=== PATIENT | male | born 1955 | race Caucasian/White ===

== ENCOUNTER 2016-07-09 01:54 | Inpatient (IN) | payer MEDICAID, OTHER ==
[~2016-07-09] VITALS: Ht 177.8 cm; Wt 105.5 kg
[2016-07-09] MEDS ORDERED: ONDANSETRON HCL 4 MG/2 ML VIAL IV ONE (02:30)
[2016-07-09] MEDS ORDERED: MORPHINE SULFATE 4 MG/ML SYRG IV ONE (02:30)
[2016-07-09 03:08] LABS: Basophils # (auto) 0.1 uL; Basophils % (auto) 0.6 % (0.0-2.0); Eosinophils # (auto) 0.3 uL; Eosinophils % (auto) 2.3 % (0.0-7.0); Hematocrit 44.9 % (41.0-53.0); Hemoglobin 14.9 g/dL (13.5-17.5); Lymphocytes % (auto) 17.6 % (10.0-50.0); Mean Corpuscular Hemoglobin 30.3 pg (28.0-32.0); Mean Corpuscular Hgb Conc. 33.3 g/dL (32.0-36.0); Mean Corpuscular Volume 90.9 fL (80.0-100.0); Mean Platelet Volume 8.5 fL (7.4-10.4); Monocytes % (auto) 9.3 % (0.0-12.0); Neutrophils # (auto) 7.8 uL; Neutrophils % (auto) 70.2 % (37.0-80.0); Platelet Count (auto) 262 10^3/uL (140-450); Red Cell Distribution Width 13.9 % (11.6-16.0); White Blood Cell 11.2 10^3/uL (4.4-10.8)
[2016-07-09 03:29] LABS: Calcium 8.5 mg/dL (8.5-10.1); Magnesium 2.1 mg/dL (1.6-2.6)
[2016-07-09 03:33] LABS: BUN/Creatinine Ratio 19.3; Bilirubin, Total 0.3 mg/dL (0.2-1.0); Total Protein 7.6 g/dL (6.4-8.2)
[2016-07-09 04:29] LABS: Potassium 5.6 mmol/L (3.5-5.1)
[2016-07-09] MEDS ORDERED: InsuLIN REG 1unit/0.01ml Soln (100units/ml) IV ONE (04:30)
[2016-07-09] MEDS ORDERED: NITROGLYCERIN 0.2MG/HR TOPICAL PATCH TD ONE (05:45)
[2016-07-09] MEDS ORDERED: ASPirin 81 mg TAB PO ONE ×2 (05:45→12:00)
[2016-07-09] MEDS ORDERED: CARV3.1213 PO (08:35)
[2016-07-09] MEDS ORDERED: AMIT PO (08:35)
[2016-07-09] MEDS ORDERED: ALBUAER3 IN (08:35)
[2016-07-09] MEDS ORDERED: GABA-498 PO (08:37)
[2016-07-09] MEDS ORDERED: IPRAAER6 IN (08:37)
[2016-07-09] MEDS ORDERED: CHOL20007 PO (08:37)
[2016-07-09] MEDS ORDERED: GEMF600T3 PO (08:37)
[2016-07-09] MEDS ORDERED: TRAZ50TA2 PO (08:37)
[2016-07-09] MEDS ORDERED: INSLISPI SC (08:39)
[2016-07-09] MEDS ORDERED: LEVEMIR SC ×2 (08:39)
[2016-07-09] MEDS ORDERED: LISI10TA6 PO (08:40)
[2016-07-09] MEDS ORDERED: NAPR-604 PO (08:40)
[2016-07-09] MEDS ORDERED: METF-314 PO (08:40)
[2016-07-09 11:44] LABS: Urine RBC None Seen /hpf (0 - 3)
[2016-07-09] MEDS ORDERED: cefTRIAXone 1GM/50ML D5W 50 ML IV ONE (11:45)
[2016-07-09] MEDS ORDERED: ACETAMINOPHEN 325 MG TAB PO PRN (11:45)
[2016-07-09] MEDS ORDERED: LORazepam 0.5 MG TAB PO PRN (11:45)
[2016-07-09] MEDS ORDERED: NITROGLYCERIN 0.4 MG SL TAB SL PRN ×2 (11:45)
[2016-07-09] MEDS ORDERED: ONDANSETRON HCL 4 MG/2 ML VIAL IV PRN (11:45)
[2016-07-09] MEDS ORDERED: NAPROXEN 500 MG TAB PO PRN (11:45)
[2016-07-09] MEDS ORDERED: MORPHINE SULF INJ 2 MG/ML SYRINGE 1ML IV PRN ×2 (11:45)
[2016-07-09] MEDS ORDERED: DEXTROSE (50%) 50ML SYRG IV PRN (11:45)
[2016-07-09] MEDS ORDERED: ALUM & MAG HYDROX-SIMETH LIQ(MAALOX) 30 ML PO PRN (11:45)
[2016-07-09 11:53] LABS: Urine Bilirubin Negative (Negative); Urine Blood Negative /uL (Negative); Urine Color Yellow (Yellow); Urine Nitrite Negative (Negative); Urine Urobilinogen Normal (Negative)
[2016-07-09 11:54] LABS: Urine Glucose 4+ mg/dL (Normal); Urine Ketone 1+ (Negative)
[2016-07-09] MEDS ORDERED: GABAPENTIN 400 MG CAP PO ONE (12:00)
[2016-07-09] MEDS ORDERED: CLOPIDOGREL BISULFATE 75 MG TAB PO ONE (12:00)
[2016-07-09] MEDS ORDERED: BUDESONIDE (INHALATION) 0.5 MG/2 ML NEB NEB ONE (12:00)
[2016-07-09] MEDS ORDERED: GEMFIBROZIL 600 MG TAB PO ONE (12:00)
[2016-07-09] MEDS ORDERED: LISINOPRIL 10 MG TAB PO ONE (12:00)
[2016-07-09] MEDS ORDERED: ENOXAPARIN SOD 100 MG/1 ML SYRINGE SC ONE ×2 (12:00→15:45)
[2016-07-09] MEDS ORDERED: DOCUSATE SOD 100 MG CAP PO ONE (12:00)
[2016-07-09] MEDS ORDERED: CARVEDILOL 3.125 MG TAB PO ONE (12:00)
[2016-07-09] MEDS: ALBUTEROL SULF 2.5 MG/0.5ML(0.5%) NEB SOLN NEB SCH ×2 (12:28→19:20)
[2016-07-09] MEDS: IPRATROPIUM BROM 0.5 MG/2.5ML INH SOL NEB SCH ×2 (12:29→19:20)
[2016-07-09] MEDS ORDERED: InsuLIN REG 1unit/0.01ml Soln (100units/ml) SC ONE (12:30)
[2016-07-09] MEDS: SODIUM CHLOR 0.9% PF (SALINE LOCK) 10ML VIAL IV SCH ×2 (12:33→22:19)
[2016-07-09] MEDS: ACCU-CHEK COMFORT CURVE STRIP VI SCH ×2 (17:13→22:15)
[2016-07-09] MEDS: InsuLIN REG 1unit/0.01ml Soln (100units/ml) SC SCH ×2 (17:15→22:22)
[2016-07-09] MEDS: NovoloG Insulin 1unit/0.01ml Soln (100units/ml) SC SCH (18:09)
[2016-07-09] MEDS: metFORMIN HYDROCHLORIDE 500 MG TAB PO SCH (18:12)
[2016-07-09 19:18] LABS: INR 1.05 (0.9-1.15); Partial Thromboplastin Time 29.3 sec (22.64-33.71); Prothrombin Time 10.8 sec (9.37-12.3)
[2016-07-09] MEDS: BUDESONIDE (INHALATION) 0.5 MG/2 ML NEB NEB SCH (19:42)
[2016-07-09] MEDS: HYDROmorphone HCL 2 MG/ML VL IV PRN ×2 (21:22→23:54)
[2016-07-09 21:24] VITALS: BP 115/69
[2016-07-09] MEDS: GABAPENTIN 400 MG CAP PO SCH (22:16)
[2016-07-09] MEDS: GEMFIBROZIL 600 MG TAB PO SCH (22:16)
[2016-07-09] MEDS: ENOXAPARIN SOD 100 MG/1 ML SYRINGE SC SCH (22:16)
[2016-07-09] MEDS: CARVEDILOL 3.125 MG TAB PO SCH (22:17)
[2016-07-09] MEDS: ATORVASTATIN 20 MG TAB PO SCH (22:17)
[2016-07-09] MEDS: INSULIN DETEMIR(LEVEMIR) 1unit/0.01ml Soln (100units/ml) SC SCH (22:23)
[2016-07-10] MEDS: ALBUTEROL SULF 2.5 MG/0.5ML(0.5%) NEB SOLN NEB SCH ×3 (00:18→18:00)
[2016-07-10] MEDS: IPRATROPIUM BROM 0.5 MG/2.5ML INH SOL NEB SCH ×3 (00:18→18:00)
[2016-07-10] MEDS: BUDESONIDE (INHALATION) 0.5 MG/2 ML NEB NEB SCH ×2 (01:16→06:14)
[2016-07-10] MEDS: HYDROmorphone HCL 2 MG/ML VL IV PRN ×2 (02:20→05:20)
[2016-07-10] MEDS: CARVEDILOL 3.125 MG TAB PO SCH ×2 (03:56→22:07)
[2016-07-10] MEDS: SODIUM CHLOR 0.9% PF (SALINE LOCK) 10ML VIAL IV SCH ×3 (06:21→22:07)
[2016-07-10 06:39] LABS: Basophils # (auto) 0.1 uL; Basophils % (auto) 0.8 % (0.0-2.0); Eosinophils # (auto) 0.3 uL; Eosinophils % (auto) 3.9 % (0.0-7.0); Hematocrit 45.2 % (41.0-53.0); Hemoglobin 14.8 g/dL (13.5-17.5); Lymphocytes # (auto) 1.9 uL; Lymphocytes % (auto) 21.5 % (10.0-50.0); Mean Corpuscular Hgb Conc. 32.8 g/dL (32.0-36.0); Mean Corpuscular Volume 91.4 fL (80.0-100.0); Mean Platelet Volume 8.4 fL (7.4-10.4); Monocytes # (auto) 0.8 uL; Monocytes % (auto) 9.6 % (0.0-12.0); Neutrophils # (auto) 5.5 uL; Neutrophils % (auto) 64.2 % (37.0-80.0); Platelet Count (auto) 240 10^3/uL (140-450); Red Cell Distribution Width 13.3 % (11.6-16.0); White Blood Cell 8.6 10^3/uL (4.4-10.8)
[2016-07-10] MEDS: ACCU-CHEK COMFORT CURVE STRIP VI SCH ×4 (06:45→22:08)
[2016-07-10] MEDS: InsuLIN REG 1unit/0.01ml Soln (100units/ml) SC SCH ×4 (06:48→22:00)
[2016-07-10] MEDS: INSULIN DETEMIR(LEVEMIR) 1unit/0.01ml Soln (100units/ml) SC SCH ×2 (06:49→22:36)
[2016-07-10 06:55] LABS: Albumin 3.7 g/dL (3.4-5.0); BUN/Creatinine Ratio 27.3; Bilirubin, Total 0.5 mg/dL (0.2-1.0); Calcium 8.8 mg/dL (8.5-10.1); Magnesium 2.1 mg/dL (1.6-2.6); Potassium 4.5 mmol/L (3.5-5.1)
[2016-07-10] MEDS ORDERED: ASPirin 325 MG TAB PO ONE ×2 (07:00→09:15)
[2016-07-10] MEDS ORDERED: LIDOCAINE 2%HCL (LOCAL ANESTH.) INJ 20ML MDV ONE (07:43)
[2016-07-10] MEDS ORDERED: IODIXANOL 320MG/ML 100ML BTL IV ONE ×2 (07:53→10:38)
[2016-07-10] MEDS: metFORMIN HYDROCHLORIDE 500 MG TAB PO SCH (08:55)
[2016-07-10] MEDS: NovoloG Insulin 1unit/0.01ml Soln (100units/ml) SC SCH ×3 (08:55→17:47)
[2016-07-10] MEDS: DOCUSATE SOD 100 MG CAP PO SCH (09:03)
[2016-07-10] MEDS: CHOLECALCIFEROL (VITD3) 1,000 UNIT TAB PO SCH (09:04)
[2016-07-10] MEDS: LISINOPRIL 10 MG TAB PO SCH (09:04)
[2016-07-10] MEDS: GABAPENTIN 400 MG CAP PO SCH ×2 (09:04→22:06)
[2016-07-10] MEDS: GEMFIBROZIL 600 MG TAB PO SCH ×2 (09:04→22:07)
[2016-07-10] MEDS: ENOXAPARIN SOD 100 MG/1 ML SYRINGE SC SCH ×2 (09:05→22:07)
[2016-07-10] MEDS: cefTRIAXone 1GM/50ML D5W 50 ML IV SCH (09:29)
[2016-07-10] MEDS ORDERED: ASPirin 81 mg TAB PO SCH (10:00)
[2016-07-10] MEDS ORDERED: CLOPIDOGREL BISULFATE 75 MG TAB PO SCH (10:00)
[2016-07-10] MEDS ORDERED: MIDAZOLAM HCL 1MG/1ML-2 ML VIAL ONE (10:03)
[2016-07-10] MEDS ORDERED: fentaNYL CITRATE 100 MCG/2 ML VL ONE (10:04)
[2016-07-10] MEDS ORDERED: ANGIOMAX 250 MG VIAL IV ONE (10:04)
[2016-07-10] MEDS ORDERED: SODIUM CHL 0.9% 50 ML ONE ×2 (10:04→10:13)
[2016-07-10] MEDS ORDERED: EPTIFIBATIDE INJ (2MG/ML) 10ML VIAL IV ONE (10:05)
[2016-07-10] MEDS ORDERED: VERAPAMIL 2.5MG/ML INJ 2ML VIAL IV ONE (10:08)
[2016-07-10] MEDS ORDERED: NITROGLYCERIN 5MG/ML 10ML VIAL IV ONE (10:13)
[2016-07-10] MEDS ORDERED: PRASUGREL HCL 10 MG TAB PO ONE (10:45)
[2016-07-10] MEDS: AZITHROMYCIN 500MG/D5W 250ML 250 ML IV SCH (12:47)
[2016-07-10 16:56] VITALS: BP 122/77
[2016-07-10 22:00] VITALS: BP 131/82
[2016-07-10] MEDS: ATORVASTATIN 20 MG TAB PO SCH (22:05)
[2016-07-10] MEDS: ZOLPIDEM TARTRATE 5 MG TAB PO PRN (23:42)
[2016-07-11] MEDS: ALBUTEROL SULF 2.5 MG/0.5ML(0.5%) NEB SOLN NEB SCH ×3 (01:16→18:00)
[2016-07-11] MEDS: IPRATROPIUM BROM 0.5 MG/2.5ML INH SOL NEB SCH ×3 (01:16→18:00)
[2016-07-11 06:00] VITALS: BP 148/95
[2016-07-11 06:00] LABS: Basophils # (auto) 0 uL; Basophils % (auto) 0.3 % (0.0-2.0); Eosinophils # (auto) 0.3 uL; Eosinophils % (auto) 3.6 % (0.0-7.0); Hematocrit 43.1 % (41.0-53.0); Hemoglobin 14.1 g/dL (13.5-17.5); Lymphocytes # (auto) 2.2 uL; Mean Corpuscular Hemoglobin 29.8 pg (28.0-32.0); Mean Corpuscular Hgb Conc. 32.7 g/dL (32.0-36.0); Mean Platelet Volume 8.4 fL (7.4-10.4); Monocytes # (auto) 1.1 uL; Monocytes % (auto) 12.7 % (0.0-12.0); Neutrophils # (auto) 4.9 uL; Neutrophils % (auto) 57.4 % (37.0-80.0); Platelet Count (auto) 227 10^3/uL (140-450); Red Cell Distribution Width 14.3 % (11.6-16.0); White Blood Cell 8.5 10^3/uL (4.4-10.8)
[2016-07-11] MEDS: BUDESONIDE (INHALATION) 0.5 MG/2 ML NEB NEB SCH ×2 (06:00→11:01)
[2016-07-11 06:12] LABS: INR 1.04 (0.9-1.15); Prothrombin Time 10.7 sec (9.37-12.3)
[2016-07-11] MEDS: SODIUM CHLOR 0.9% PF (SALINE LOCK) 10ML VIAL IV SCH ×3 (06:18→22:02)
[2016-07-11 06:22] LABS: Albumin 3.6 g/dL (3.4-5.0); BUN/Creatinine Ratio 23.7; Bilirubin, Total 0.5 mg/dL (0.2-1.0); Calcium 8.7 mg/dL (8.5-10.1); Magnesium 2.4 mg/dL (1.6-2.6); Potassium 3.7 mmol/L (3.5-5.1); Total Protein 6.8 g/dL (6.4-8.2)
[2016-07-11] MEDS: ACCU-CHEK COMFORT CURVE STRIP VI SCH ×4 (06:40→22:02)
[2016-07-11] MEDS: InsuLIN REG 1unit/0.01ml Soln (100units/ml) SC SCH ×3 (06:41→22:30)
[2016-07-11] MEDS: INSULIN DETEMIR(LEVEMIR) 1unit/0.01ml Soln (100units/ml) SC SCH ×2 (06:41→22:00)
[2016-07-11] MEDS ORDERED: CLOPIDOGREL BISULFATE 75 MG TAB PO ONE (08:00)
[2016-07-11] MEDS: NovoloG Insulin 1unit/0.01ml Soln (100units/ml) SC SCH (08:23)
[2016-07-11 09:00] VITALS: BP 152/91
[2016-07-11] MEDS: cefTRIAXone 1GM/50ML D5W 50 ML IV SCH (09:20)
[2016-07-11] MEDS: ENOXAPARIN SOD 100 MG/1 ML SYRINGE SC SCH ×2 (10:28→22:01)
[2016-07-11] MEDS: CHOLECALCIFEROL (VITD3) 1,000 UNIT TAB PO SCH (10:28)
[2016-07-11] MEDS: DOCUSATE SOD 100 MG CAP PO SCH (10:29)
[2016-07-11] MEDS: GABAPENTIN 400 MG CAP PO SCH ×2 (10:29→22:00)
[2016-07-11] MEDS: LISINOPRIL 10 MG TAB PO SCH (10:29)
[2016-07-11] MEDS: GEMFIBROZIL 600 MG TAB PO SCH ×2 (10:30→22:02)
[2016-07-11] MEDS: CARVEDILOL 3.125 MG TAB PO SCH ×2 (10:30→22:00)
[2016-07-11] MEDS: ASPirin 81 mg TAB PO SCH (10:31)
[2016-07-11] MEDS: AZITHROMYCIN 500MG/D5W 250ML 250 ML IV SCH (12:22)
[2016-07-11 13:00] VITALS: BP 143/85
[2016-07-11 16:00] VITALS: BP 151/83
[2016-07-11 22:00] VITALS: BP 158/89
[2016-07-11] MEDS: ATORVASTATIN 20 MG TAB PO SCH (22:00)
[2016-07-11] MEDS: ZOLPIDEM TARTRATE 5 MG TAB PO PRN (22:02)
[2016-07-12 05:30] VITALS: BP 151/89
[2016-07-12 05:43] LABS: Basophils # (auto) 0 uL; Basophils % (auto) 0.4 % (0.0-2.0); Eosinophils # (auto) 0.3 uL; Eosinophils % (auto) 3.9 % (0.0-7.0); Hematocrit 44.3 % (41.0-53.0); Hemoglobin 14.8 g/dL (13.5-17.5); Lymphocytes # (auto) 2.2 uL; Lymphocytes % (auto) 27.1 % (10.0-50.0); Mean Corpuscular Hemoglobin 30.3 pg (28.0-32.0); Mean Corpuscular Hgb Conc. 33.5 g/dL (32.0-36.0); Mean Corpuscular Volume 90.6 fL (80.0-100.0); Mean Platelet Volume 8.5 fL (7.4-10.4); Monocytes # (auto) 0.9 uL; Monocytes % (auto) 11.2 % (0.0-12.0); Neutrophils # (auto) 4.7 uL; Neutrophils % (auto) 57.4 % (37.0-80.0); Platelet Count (auto) 257 10^3/uL (140-450); White Blood Cell 8.3 10^3/uL (4.4-10.8)
[2016-07-12 05:59] LABS: INR 1.04 (0.9-1.15); Prothrombin Time 10.7 sec (9.37-12.3)
[2016-07-12] MEDS: ALBUTEROL SULF 2.5 MG/0.5ML(0.5%) NEB SOLN NEB SCH ×2 (06:00→13:25)
[2016-07-12] MEDS: IPRATROPIUM BROM 0.5 MG/2.5ML INH SOL NEB SCH ×2 (06:00→13:25)
[2016-07-12] MEDS: SODIUM CHLOR 0.9% PF (SALINE LOCK) 10ML VIAL IV SCH (06:00)
[2016-07-12 06:21] LABS: Magnesium 2.3 mg/dL (1.6-2.6); Potassium 3.7 mmol/L (3.5-5.1)
[2016-07-12] MEDS: ACCU-CHEK COMFORT CURVE STRIP VI SCH ×2 (06:43→11:30)
[2016-07-12] MEDS: INSULIN DETEMIR(LEVEMIR) 1unit/0.01ml Soln (100units/ml) SC SCH (06:44)
[2016-07-12 08:00] VITALS: BP 147/92
[2016-07-12] MEDS ORDERED: CLOPIDOGREL BISULFATE 75 MG TAB PO ONE (08:00)
[2016-07-12] MEDS: CHOLECALCIFEROL (VITD3) 1,000 UNIT TAB PO SCH (08:34)
[2016-07-12] MEDS: ASPirin 81 mg TAB PO SCH (08:35)
[2016-07-12] MEDS: CARVEDILOL 3.125 MG TAB PO SCH (08:36)
[2016-07-12] MEDS: DOCUSATE SOD 100 MG CAP PO SCH (08:36)
[2016-07-12] MEDS: LISINOPRIL 10 MG TAB PO SCH (08:37)
[2016-07-12] MEDS: GEMFIBROZIL 600 MG TAB PO SCH (08:37)
[2016-07-12] MEDS: GABAPENTIN 400 MG CAP PO SCH (08:37)
[2016-07-12] MEDS: ENOXAPARIN SOD 100 MG/1 ML SYRINGE SC SCH (08:38)
[2016-07-12] MEDS: cefTRIAXone 1GM/50ML D5W 50 ML IV SCH (08:39)
[2016-07-12] MEDS: InsuLIN REG 1unit/0.01ml Soln (100units/ml) SC SCH ×2 (08:49→12:29)
[2016-07-12] MEDS: AZITHROMYCIN 500MG/D5W 250ML 250 ML IV SCH (10:54)
[2016-07-12 12:00] VITALS: BP 152/94
[2016-07-12] MEDS: BUDESONIDE (INHALATION) 0.5 MG/2 ML NEB NEB SCH (13:25)
[2016-07-12 15:06] VITALS: BP 147/92
[2016-07-12 16:00] VITALS: BP 128/75
[2016-07-12 16:24] VITALS: BP 147/92
[2016-07-13] MEDS ORDERED: CLOPIDOGREL BISULFATE 75 MG TAB PO SCH (10:00)
== END 2016-07-12 16:00 | disposition home or self-care (01) | DRG 174 ==
LOC: EDBD 01:54 → ER 01:59 → TELE 02:00 → TELE-CENTR 07-10 15:43
PROVIDERS: ADMIT Internal Medicine; ATTEND Internal Medicine
PROC: 027034Z Dilation of Coronary Artery, One Artery with Drug-eluting Intraluminal Device, Percutaneous Approach (ICD-10-PCS; principal; 2016-07-10)
PROC: 4A023N7 Measurement of Cardiac Sampling and Pressure, Left Heart, Percutaneous Approach (ICD-10-PCS; 2016-07-10)
PROC: B2111ZZ Fluoroscopy of Multiple Coronary Arteries using Low Osmolar Contrast (ICD-10-PCS; 2016-07-10)
DX: I21.4 Non-ST elevation (NSTEMI) myocardial infarction (principal); I50.43 Acute on chronic combined systolic (congestive) and diastolic (congestive) heart failure; E10.21 Type 1 diabetes mellitus with diabetic nephropathy; R65.10 Systemic inflammatory response syndrome (SIRS) of non-infectious origin without acute organ dysfunction; J44.0 Chronic obstructive pulmonary disease with (acute) lower respiratory infection; I13.0 Hypertensive heart and chronic kidney disease with heart failure and stage 1 through stage 4 chronic kidney disease, or unspecified chronic kidney disease; E87.1 Hypo-osmolality and hyponatremia; K76.0 Fatty (change of) liver, not elsewhere classified; E10.65 Type 1 diabetes mellitus with hyperglycemia; E10.22 Type 1 diabetes mellitus with diabetic chronic kidney disease; E78.5 Hyperlipidemia, unspecified; E86.0 Dehydration; E87.5 Hyperkalemia; E87.6 Hypokalemia; J20.9 Acute bronchitis, unspecified; K57.30 Diverticulosis of large intestine without perforation or abscess without bleeding; N28.1 Cyst of kidney, acquired; Z79.4 Long term (current) use of insulin; Z82.49 Family history of ischemic heart disease and other diseases of the circulatory system; Z83.3 Family history of diabetes mellitus; Z87.891 Personal history of nicotine dependence; N18.2 Chronic kidney disease, stage 2 (mild); F41.9 Anxiety disorder, unspecified
CPT/HCPCS: 36415; 71010; 74176; 80048; 80053; 80061; 80320; 81001; 82962; 83036; 83690; 83735; 84484; 85025; 85610; 85730; 92928; 93005; 93306; 93458; 94640; 96372; 96374; 96375; G0434; J0696; J1815; J2250; J2405; J3490; Q9967

== ENCOUNTER 2016-12-26 10:25 | Emergency (ER) | payer MEDICAID ==
[~2016-12-26] VITALS: Ht 177.8 cm; Wt 99.8 kg
[~2016-12-26 10:25] MED LIST: ALBUAER3 IN; CHOL20007 PO; GABA-498 PO; GEMF600T3 PO; INSLISPI SC; IPRAAER6 IN; LEVEMIR SC; LISI10TA6 PO; METF-371 PO; TRAZ50TA2 PO
[2016-12-26 13:57] LABS: Basophils # (auto) 0 uL; Basophils % (auto) 0.3 % (0.0-2.0); CONDITION Y; Eosinophils # (auto) 0.4 uL; Eosinophils % (auto) 4.3 % (0.0-7.0); Hematocrit 41.7 % (41.0-53.0); Lymphocytes % (auto) 21.9 % (10.0-50.0); Mean Corpuscular Hemoglobin 30.5 pg (28.0-32.0); Mean Corpuscular Hgb Conc. 33.7 g/dL (32.0-36.0); Mean Corpuscular Volume 90.6 fL (80.0-100.0); Mean Platelet Volume 8.6 fL (7.4-10.4); Monocytes # (auto) 0.8 uL; Neutrophils # (auto) 5.8 uL; Neutrophils % (auto) 64.5 % (37.0-80.0); Platelet Count (auto) 295 10^3/uL (140-450)
[2016-12-26 14:06] LABS: Albumin 4.3 g/dL (3.4-5.0); Calcium 9.1 mg/dL (8.5-10.1); Potassium 4.9 mmol/L (3.5-5.1)
[2016-12-26 14:09] LABS: Bilirubin, Total 0.5 mg/dL (0.2-1.0); Total Protein 7.4 g/dL (6.4-8.2)
[2016-12-26 14:53] VITALS: BP 167/81
[2016-12-26] MEDS ORDERED: SUMAtriptan SUCCINATE 6 MG/0.5 ML VL SC ONE (15:00)
[2016-12-26] MEDS ORDERED: ONDANSETRON ODT 4 MG TAB PO ONE (15:30)
== END 2016-12-26 16:10 | disposition home or self-care (01) ==
LOC: ER 10:28
DX: R51 Headache (principal); R42 Dizziness and giddiness; I25.2 Old myocardial infarction; E11.9 Type 2 diabetes mellitus without complications; I10 Essential (primary) hypertension; J44.9 Chronic obstructive pulmonary disease, unspecified; F12.10 Cannabis abuse, uncomplicated
CPT/HCPCS: 36415; 70450; 80053; 82962; 85025; 96372; 99285; J3030; Q0162

== ENCOUNTER 2017-01-12 17:00 | Inpatient (IN) | payer MEDICAID ==
[~2017-01-12] VITALS: Ht 177.8 cm; Wt 97.6 kg
[2017-01-12] MEDS ORDERED: SODIUM CHLORIDE 0.9% 1,000 ML IVB ONE (17:10)
[2017-01-12] MEDS ORDERED: ONDANSETRON HCL 4 MG/2 ML VIAL IV ONE (17:15)
[2017-01-12 17:39] LABS: Basophils # (auto) 0.1 uL; Basophils % (auto) 0.3 % (0.0-2.0); CONDITION Y; Eosinophils # (auto) 0.2 uL; Eosinophils % (auto) 1.3 % (0.0-7.0); Hemoglobin 16.7 g/dL (13.5-17.5); Lymphocytes # (auto) 1.5 uL; Lymphocytes % (auto) 7.6 % (10.0-50.0); Mean Corpuscular Hemoglobin 30.7 pg (28.0-32.0); Mean Corpuscular Volume 90.3 fL (80.0-100.0); Mean Platelet Volume 8.6 fL (7.4-10.4); Monocytes # (auto) 0.9 uL; Monocytes % (auto) 4.5 % (0.0-12.0); Neutrophils # (auto) 16.6 uL; Neutrophils % (auto) 86.3 % (37.0-80.0); Platelet Count (auto) 340 10^3/uL (140-450); White Blood Cell 19.2 10^3/uL (4.4-10.8)
[2017-01-12 17:42] LABS: Urine Bilirubin Negative (Negative); Urine Blood Negative /uL (Negative); Urine Color Yellow (Yellow); Urine Ketone TRACE (Negative); Urine Mucus FEW (None Seen); Urine Nitrite Negative (Negative); Urine RBC <1 /hpf (0 - 3); Urine Urobilinogen Normal (Negative); Urine pH 5.5 (5.0-8.0)
[2017-01-12 17:45] LABS: Urine Glucose 2+ mg/dL (Normal)
[2017-01-12 17:52] LABS: Magnesium 2.2 mg/dL (1.6-2.6)
[2017-01-12 17:53] LABS: Partial Thromboplastin Time 24.3 sec (22.64-33.71); Prothrombin Time 10.9 sec (9.37-12.3)
[2017-01-12 18:01] LABS: Albumin 4.4 g/dL (3.4-5.0); Alkaline Phosphatase 68 U/L (45-117); Amylase 67 U/L (25-115); Anion Gap 9 (5-15); Aspartate Aminotransferase 24 U/L (15-37); BUN/Creatinine Ratio 24.7; Bilirubin, Total 0.5 mg/dL (0.2-1.0); Blood Urea Nitrogen 23 mg/dL (7-18); Calcium 8.9 mg/dL (8.5-10.1); Carbon Dioxide 27 mmol/L (21-32); Chloride 101 mmol/L (98-107); GFR African American 107 mL/min; GFR Non-African American 88 mL/min; Glucose 235 mg/dL (74-106); Potassium 4.8 mmol/L (3.5-5.1); Sodium 137 mmol/L (136-145); Total Protein 7.9 g/dL (6.4-8.2)
[2017-01-12] MEDS ORDERED: PROMETHAZINE HCL 25 MG/ML 1ML IV ONE (20:30)
[2017-01-12] MEDS ORDERED: MORPHINE SULF INJ 2 MG/ML SYRINGE 1ML IV ONE (20:30)
[2017-01-12] MEDS: SODIUM CHLORIDE 0.9% 1,000 ML IV SCH (21:57)
[2017-01-12] MEDS ORDERED: DEXTROSE (50%) 50ML SYRG IV PRN (22:00)
[2017-01-12] MEDS ORDERED: TEMAZEPAM 15 MG CAP PO PRN (22:00)
[2017-01-12] MEDS ORDERED: cefTRIAXone 1GM/50ML D5W 50 ML IV ONE (22:00)
[2017-01-12] MEDS ORDERED: PANTOPRAZOLE SODIUM 40 MG/10 ML VIAL IV ONE (22:00)
[2017-01-12] MEDS ORDERED: metroNIDAZOLE 250MG/50 ML 50 ML IV SCH (22:00)
[2017-01-12] MEDS ORDERED: HYDROcodone-ACET 5/325MG TAB PO PRN (22:00)
[2017-01-12] MEDS ORDERED: MORPHINE SULF INJ 2 MG/ML SYRINGE 1ML IV PRN ×2 (22:00)
[2017-01-12] MEDS ORDERED: NITROGLYCERIN 0.4 MG SL TAB SL PRN (22:00)
[2017-01-12] MEDS ORDERED: GABA-498 PO (22:10)
[2017-01-12] MEDS ORDERED: ASPI81CH4 PO (22:10)
[2017-01-12] MEDS ORDERED: CARV6.2551 PO (22:10)
[2017-01-12] MEDS ORDERED: LISI-646 PO (22:10)
[2017-01-12] MEDS ORDERED: ALBU0.5N2 IN (22:10)
[2017-01-12] MEDS ORDERED: ERGO1CAP6 PO (22:10)
[2017-01-12] MEDS ORDERED: LEVEMIR SC ×2 (22:10)
[2017-01-12] MEDS ORDERED: ATOR20TA PO (22:10)
[2017-01-12] MEDS ORDERED: LOR05T PO (22:10)
[2017-01-12] MEDS ORDERED: NITR0.4S29 SL (22:10)
[2017-01-12] MEDS ORDERED: CLOP75TA28 PO (22:10)
[2017-01-12] MEDS ORDERED: INSU100I2 SC (22:10)
[2017-01-12] MEDS ORDERED: METF-372 PO (22:10)
[2017-01-12] MEDS ORDERED: GEMF600T3 PO (22:10)
[2017-01-12] MEDS ORDERED: NAPR-604 PO (22:10)
[2017-01-12] MEDS ORDERED: TRAZ100T2 PO (22:10)
[2017-01-12] MEDS ORDERED: SODIUM CHLORIDE 0.9% 1,000 ML IV ONE (22:15)
[2017-01-12] MEDS: hydrALAZINE HCL 20 MG/ML VL IV PRN (23:13)
[2017-01-13] MEDS: InsuLIN REG 1unit/0.01ml Soln (100units/ml) SC SCH ×5 (00:20→23:25)
[2017-01-13] MEDS: ACCU-CHEK COMFORT CURVE STRIP VI SCH ×5 (00:21→23:25)
[2017-01-13] MEDS ORDERED: METOPROLOL TARTRATE 1MG/1ML-5ML VIAL IV ONE (01:00)
[2017-01-13] MEDS: ONDANSETRON HCL 4 MG/2 ML VIAL IV PRN ×2 (01:26→12:36)
[2017-01-13] MEDS ORDERED: LORazepam 2MG/ML-1ML VIAL IV PRN (02:45)
[2017-01-13 04:34] VITALS: BP 161/77
[2017-01-13] MEDS: SODIUM CHLORIDE 0.9% 1,000 ML IV SCH ×2 (05:45→19:40)
[2017-01-13 06:07] LABS: CONDITION Y; Hematocrit 42.7 % (41.0-53.0); Hemoglobin 14.6 g/dL (13.5-17.5); Mean Corpuscular Hemoglobin 30.7 pg (28.0-32.0); Mean Corpuscular Hgb Conc. 34.1 g/dL (32.0-36.0); Mean Platelet Volume 8.3 fL (7.4-10.4); Platelet Count (auto) 279 10^3/uL (140-450); SUSPECT SEE PRINTOUT; White Blood Cell 18.4 10^3/uL (4.4-10.8)
[2017-01-13 06:09] LABS: Metamyelocytes % 0; Myelocytes % 0; Promyelocytes % 0; Reactive Lymphocytes 0
[2017-01-13 06:34] LABS: Albumin 3.6 g/dL (3.4-5.0); BUN/Creatinine Ratio 27.1; Bilirubin, Total 0.4 mg/dL (0.2-1.0); Calcium 8.2 mg/dL (8.5-10.1); Total Protein 6.6 g/dL (6.4-8.2)
[2017-01-13] MEDS: metroNIDAZOLE 500MG/100ML 100 ML IV SCH ×3 (06:53→21:47)
[2017-01-13 07:45] VITALS: BP 160/85
[2017-01-13 08:21] LABS: Platelet Estimate Adequate
[2017-01-13 09:20] VITALS: BP 160/85
[2017-01-13] MEDS: ENOXAPARIN SOD 40 MG/0.4 ML SYRINGE SC SCH (10:16)
[2017-01-13] MEDS: PANTOPRAZOLE SODIUM 40 MG/10 ML VIAL IV SCH (10:16)
[2017-01-13] MEDS ORDERED: GASTROGRAFIN 120 ML SOL ONE (10:39)
[2017-01-13 12:42] VITALS: BP 159/84
[2017-01-13] MEDS: hydrALAZINE HCL 20 MG/ML VL IV PRN (12:53)
[2017-01-13 16:37] VITALS: BP 160/83
[2017-01-13 21:35] VITALS: BP 148/81
[2017-01-13] MEDS ORDERED: cefTRIAXone 1GM/50ML D5W 50 ML IV SCH (22:00)
[2017-01-14] MEDS: SODIUM CHLORIDE 0.9% 1,000 ML IV SCH ×2 (03:57→13:57)
[2017-01-14 04:35] VITALS: BP 148/70
[2017-01-14] MEDS: ACETAMINOPHEN 325 MG TAB PO PRN ×2 (05:13→15:26)
[2017-01-14] MEDS: ACCU-CHEK COMFORT CURVE STRIP VI SCH ×3 (05:37→18:26)
[2017-01-14] MEDS: metroNIDAZOLE 500MG/100ML 100 ML IV SCH ×2 (05:37→15:25)
[2017-01-14] MEDS: InsuLIN REG 1unit/0.01ml Soln (100units/ml) SC SCH ×3 (05:37→18:28)
[2017-01-14 07:35] VITALS: BP 146/79
[2017-01-14 09:00] VITALS: BP_SYST 146; BP_SYST 159; BP_DIAS 79; BP_DIAS 89
[2017-01-14] MEDS: PANTOPRAZOLE SODIUM 40 MG/10 ML VIAL IV SCH (10:13)
[2017-01-14] MEDS: ENOXAPARIN SOD 40 MG/0.4 ML SYRINGE SC SCH (10:13)
[2017-01-14 13:00] VITALS: BP 163/84
[2017-01-14] MEDS: hydrALAZINE HCL 20 MG/ML VL IV PRN (15:38)
[2017-01-14] MEDS ORDERED: CLOPIDOGREL BISULFATE 75 MG TAB PO ONE (16:15)
[2017-01-14 17:00] VITALS: BP_SYST 174; BP_SYST 179; BP_DIAS 71; BP_DIAS 85
[2017-01-14 18:41] VITALS: BP 160/82
== END 2017-01-14 19:53 | disposition home or self-care (01) | DRG 247 ==
LOC: ER 17:03 → TELE 17:04 → TELE-CENTR 01-13 02:55
PROVIDERS: ADMIT Nurse Practitioner; ATTEND Internal Medicine
DX: K56.60 Unspecified intestinal obstruction (principal); E11.65 Type 2 diabetes mellitus with hyperglycemia; I10 Essential (primary) hypertension; J44.9 Chronic obstructive pulmonary disease, unspecified; F41.9 Anxiety disorder, unspecified; E78.5 Hyperlipidemia, unspecified; I25.10 Atherosclerotic heart disease of native coronary artery without angina pectoris; Z82.49 Family history of ischemic heart disease and other diseases of the circulatory system; Z98.61 Coronary angioplasty status; Z83.3 Family history of diabetes mellitus
CPT/HCPCS: 36415; 71010; 74176; 74250; 80053; 81001; 82150; 82962; 83690; 83735; 84484; 85007; 85025; 85027; 85610; 85730; 87040; 93005; 94761; 96374; 96375; C9113; J0696; J1815; J2405; J3490

== ENCOUNTER 2017-01-16 00:47 | Inpatient (IN) | payer MEDICAID ==
[~2017-01-16] VITALS: Ht 175.3 cm; Wt 99.4 kg
[~2017-01-16 00:47] MED LIST changes: +ALBU0.5N2 IN; +ASPI81CH4 PO; +ATOR20TA PO; +CARV6.2551 PO; -CHOL20007 PO; +CLOP75TA28 PO; +ERGO1CAP6 PO; +INSU100I2 SC; -IPRAAER6 IN; +LOR05T PO; +METF-372 PO; +NAPR-604 PO; +NITR0.4S29 SL; +TRAZ100T2 PO
[2017-01-16 02:48] LABS: Basophils # (auto) 0 uL; Basophils % (auto) 0.1 % (0.0-2.0); CONDITION Y; Eosinophils # (auto) 0.4 uL; Eosinophils % (auto) 3.6 % (0.0-7.0); Hematocrit 44.8 % (41.0-53.0); Hemoglobin 15.1 g/dL (13.5-17.5); Lymphocytes # (auto) 1.9 uL; Mean Corpuscular Hemoglobin 30.6 pg (28.0-32.0); Mean Corpuscular Hgb Conc. 33.8 g/dL (32.0-36.0); Mean Corpuscular Volume 90.7 fL (80.0-100.0); Mean Platelet Volume 8.2 fL (7.4-10.4); Monocytes % (auto) 8.5 % (0.0-12.0); Neutrophils # (auto) 8.6 uL; Neutrophils % (auto) 71.8 % (37.0-80.0); Platelet Count (auto) 311 10^3/uL (140-450); Red Cell Distribution Width 14.2 % (11.6-16.0); White Blood Cell 11.9 10^3/uL (4.4-10.8)
[2017-01-16 03:06] LABS: Albumin 4.2 g/dL (3.4-5.0); Calcium 9.4 mg/dL (8.5-10.1); Potassium 4.6 mmol/L (3.5-5.1)
[2017-01-16 03:09] LABS: Bilirubin, Total 0.7 mg/dL (0.2-1.0); Total Protein 7.9 g/dL (6.4-8.2)
[2017-01-16] MEDS ORDERED: SODIUM CHLORIDE 0.9% 1,000 ML IVB ONE (12:07)
[2017-01-16] MEDS ORDERED: ONDANSETRON HCL 4 MG/2 ML VIAL IV ONE (12:15)
[2017-01-16] MEDS ORDERED: MORPHINE SULF INJ 2 MG/ML SYRINGE 1ML IV ONE (13:15)
[2017-01-16] MEDS ORDERED: metroNIDAZOLE 500MG/100ML 100 ML IV ONE (13:15)
[2017-01-16] MEDS ORDERED: IPRATROPIUM BROM 0.5 MG/2.5ML INH SOL NEB ONE (13:15)
[2017-01-16] MEDS ORDERED: ALBUTEROL SULF 2.5 MG/0.5ML(0.5%) NEB SOLN NEB ONE (13:15)
[2017-01-16] MEDS ORDERED: SODIUM CHLORIDE 0.9% 1,000 ML IV SCH (13:43)
[2017-01-16] MEDS ORDERED: ALBUTEROL SULF 2.5 MG/0.5ML(0.5%) NEB SOLN NEB PRN (13:45)
[2017-01-16] MEDS ORDERED: FAMOTIDINE (10MG/ML) 2ML VL IV SCH (13:45)
[2017-01-16] MEDS ORDERED: PROMETHAZINE HCL 25 MG/ML 1ML IV PRN (13:45)
[2017-01-16] MEDS ORDERED: cefTRIAXone 1GM/50ML D5W 50 ML IV ONE ×2 (13:45→14:00)
[2017-01-16 13:58] LABS: INR 1.04 (0.9-1.15); Partial Thromboplastin Time 28.2 sec (22.64-33.71); Prothrombin Time 11.3 sec (9.37-12.3)
[2017-01-16] MEDS ORDERED: TEMAZEPAM 15 MG CAP PO PRN (14:00)
[2017-01-16] MEDS ORDERED: LORazepam 0.5 MG TAB PO PRN (14:00)
[2017-01-16] MEDS ORDERED: HYDROcodone-ACET 5/325MG TAB PO PRN (14:00)
[2017-01-16] MEDS ORDERED: DEXTROSE (50%) 50ML SYRG IV PRN (14:00)
[2017-01-16] MEDS ORDERED: ACETAMINOPHEN 500 MG TAB PO PRN (14:00)
[2017-01-16] MEDS ORDERED: metroNIDAZOLE 500MG/100ML 100 ML IV SCH (14:00)
[2017-01-16] MEDS ORDERED: MORPHINE SULF INJ 2 MG/ML SYRINGE 1ML IV PRN ×2 (14:00)
[2017-01-16] MEDS ORDERED: NITROGLYCERIN 0.4 MG SL TAB SL PRN (14:00)
[2017-01-16] MEDS ORDERED: ONDANSETRON HCL 4 MG/2 ML VIAL IV PRN (14:00)
[2017-01-16 14:27] LABS: Urine RBC None Seen /hpf (0 - 3)
[2017-01-16] MEDS: SODIUM CHLORIDE 0.9% 1,000 ML IV SCH ×2 (14:39→23:55)
[2017-01-16 15:15] LABS: Amylase 55 U/L (25-115)
[2017-01-16 15:39] LABS: Urine Bilirubin Negative (Negative); Urine Blood Negative /uL (Negative); Urine Color Yellow (Yellow); Urine Glucose Normal (Normal); Urine Ketone Negative (Negative); Urine Nitrite Negative (Negative); Urine Urobilinogen Normal (Negative); Urine pH 5.5 (5.0-8.0)
[2017-01-16] MEDS: ACCU-CHEK COMFORT CURVE STRIP VI SCH ×2 (17:30→22:00)
[2017-01-16] MEDS: InsuLIN REG 1unit/0.01ml Soln (100units/ml) SC SCH (17:44)
[2017-01-16] MEDS ORDERED: IPRATROPIUM BROM 0.5 MG/2.5ML INH SOL NEB SCH (18:00)
[2017-01-16] MEDS ORDERED: ALBUTEROL SULF 2.5 MG/0.5ML(0.5%) NEB SOLN NEB SCH (18:00)
[2017-01-16] MEDS: ALBUTEROL SULF 2.5 MG/0.5ML(0.5%) NEB SOLN NEB SCH (19:27)
[2017-01-16 21:18] VITALS: BP 167/87
[2017-01-16 21:30] VITALS: BP 135/73
[2017-01-16] MEDS ORDERED: ATORVASTATIN 20 MG TAB PO SCH (22:00)
[2017-01-16] MEDS ORDERED: InsuLIN REG 1unit/0.01ml Soln (100units/ml) SC SCH (22:00)
[2017-01-16] MEDS ORDERED: traZODone HCL 50 MG TAB PO SCH (22:00)
[2017-01-16] MEDS: GABAPENTIN 400 MG CAP PO SCH (22:23)
[2017-01-16] MEDS: metroNIDAZOLE 500MG/100ML 100 ML IV SCH (22:23)
[2017-01-16] MEDS: CARVEDILOL 3.125 MG TAB PO SCH (22:24)
[2017-01-17 00:37] VITALS: BP 135/75
[2017-01-17] MEDS ORDERED: ATOR20TA50 PO (02:47)
[2017-01-17 05:00] VITALS: BP 143/76
[2017-01-17] MEDS: metroNIDAZOLE 500MG/100ML 100 ML IV SCH ×2 (06:05→14:17)
[2017-01-17] MEDS: ALBUTEROL SULF 2.5 MG/0.5ML(0.5%) NEB SOLN NEB SCH ×3 (06:13→11:33)
[2017-01-17 06:15] LABS: Basophils # (auto) 0 uL; Basophils % (auto) 0.5 % (0.0-2.0); CONDITION Y; Eosinophils # (auto) 0.3 uL; Eosinophils % (auto) 4.4 % (0.0-7.0); Hematocrit 39.9 % (41.0-53.0); Hemoglobin 13.5 g/dL (13.5-17.5); Lymphocytes # (auto) 1.5 uL; Lymphocytes % (auto) 20.9 % (10.0-50.0); Mean Corpuscular Hemoglobin 30.8 pg (28.0-32.0); Mean Corpuscular Hgb Conc. 33.9 g/dL (32.0-36.0); Mean Corpuscular Volume 90.7 fL (80.0-100.0); Mean Platelet Volume 8.3 fL (7.4-10.4); Monocytes # (auto) 0.7 uL; Monocytes % (auto) 9.7 % (0.0-12.0); Neutrophils # (auto) 4.5 uL; Neutrophils % (auto) 64.5 % (37.0-80.0); Platelet Count (auto) 260 10^3/uL (140-450); Red Cell Distribution Width 13.7 % (11.6-16.0)
[2017-01-17 06:27] LABS: INR 1.05 (0.9-1.15); Prothrombin Time 11.4 sec (9.37-12.3)
[2017-01-17] MEDS: InsuLIN REG 1unit/0.01ml Soln (100units/ml) SC SCH ×2 (06:36→13:08)
[2017-01-17] MEDS: ACCU-CHEK COMFORT CURVE STRIP VI SCH ×2 (06:36→13:07)
[2017-01-17 06:53] LABS: Albumin 3.5 g/dL (3.4-5.0); BUN/Creatinine Ratio 17.2; Bilirubin, Total 0.5 mg/dL (0.2-1.0); Calcium 8.3 mg/dL (8.5-10.1); Total Protein 6.3 g/dL (6.4-8.2)
[2017-01-17] MEDS ORDERED: PNEUMOCOCCAL VACC POLYS 25 MCG/0.5 ML VIAL IM SCH (07:45)
[2017-01-17 09:00] VITALS: BP 130/68
[2017-01-17] MEDS ORDERED: cefTRIAXone 1GM/50ML D5W 50 ML IV SCH ×2 (09:00)
[2017-01-17] MEDS: SODIUM CHLORIDE 0.9% 1,000 ML IV SCH (09:55)
[2017-01-17] MEDS ORDERED: CLOPIDOGREL BISULFATE 75 MG TAB PO SCH (10:00)
[2017-01-17] MEDS ORDERED: PANTOPRAZOLE SODIUM 40 MG/10 ML VIAL IV SCH (10:00)
[2017-01-17] MEDS: GABAPENTIN 400 MG CAP PO SCH (10:16)
[2017-01-17] MEDS: CARVEDILOL 3.125 MG TAB PO SCH (10:17)
[2017-01-17 13:00] VITALS: BP 149/72
[2017-01-17] MEDS ORDERED: METR500T PO (14:50)
[2017-01-17 16:48] VITALS: BP 149/72
[2017-01-17 17:36] VITALS: BP 166/76
== END 2017-01-17 17:40 | disposition home or self-care (01) | DRG 249 ==
LOC: ER 00:47 → TELE 00:48 → TELE-CENTR 20:45
PROVIDERS: ADMIT Nurse Practitioner Family; ATTEND Nurse Practitioner Acute Care
DX: K52.9 Noninfective gastroenteritis and colitis, unspecified (principal); K56.60 Unspecified intestinal obstruction; J84.10 Pulmonary fibrosis, unspecified; E11.65 Type 2 diabetes mellitus with hyperglycemia; K76.0 Fatty (change of) liver, not elsewhere classified; J44.9 Chronic obstructive pulmonary disease, unspecified; E78.5 Hyperlipidemia, unspecified; E66.9 Obesity, unspecified; F41.9 Anxiety disorder, unspecified; I10 Essential (primary) hypertension; I25.10 Atherosclerotic heart disease of native coronary artery without angina pectoris; K40.90 Unilateral inguinal hernia, without obstruction or gangrene, not specified as recurrent; K57.30 Diverticulosis of large intestine without perforation or abscess without bleeding; N28.1 Cyst of kidney, acquired; Z79.4 Long term (current) use of insulin; Z79.899 Other long term (current) drug therapy; Z79.84 Long term (current) use of oral hypoglycemic drugs; Z82.49 Family history of ischemic heart disease and other diseases of the circulatory system; Z87.891 Personal history of nicotine dependence; Z83.3 Family history of diabetes mellitus; Z80.9 Family history of malignant neoplasm, unspecified; Z87.81 Personal history of (healed) traumatic fracture; Z95.5 Presence of coronary angioplasty implant and graft; Z71.89 Other specified counseling; Z68.32 Body mass index [BMI] 32.0-32.9, adult
CPT/HCPCS: 36415; 71010; 74000; 74176; 80053; 81001; 82150; 82962; 83036; 83690; 83735; 85025; 85610; 85652; 85730; 86141; 87081; 93005; 94640; 94761; 96361; 96365; 96375; C9113; J0696; J1815; J2405; J3490

== ENCOUNTER 2017-02-17 22:36 | Emergency (ER) | payer MEDICAID ==
[~2017-02-17] VITALS: Ht 177.8 cm; Wt 102.1 kg
[~2017-02-17 22:36] MED LIST changes: -ATOR20TA PO; +ATOR20TA50 PO; -METF-371 PO; -METF-372 PO; +METR500T PO; -TRAZ50TA2 PO
[2017-02-17 23:22] LABS: Basophils # (auto) 0 uL; Basophils % (auto) 0.7 % (0.0-2.0); CONDITION Y; Eosinophils # (auto) 0.3 uL; Eosinophils % (auto) 3.8 % (0.0-7.0); Hematocrit 40.4 % (41.0-53.0); Hemoglobin 13.8 g/dL (13.5-17.5); Lymphocytes # (auto) 1.5 uL; Lymphocytes % (auto) 20.9 % (10.0-50.0); Mean Corpuscular Hemoglobin 31.2 pg (28.0-32.0); Mean Corpuscular Hgb Conc. 34.2 g/dL (32.0-36.0); Mean Corpuscular Volume 91.3 fL (80.0-100.0); Monocytes # (auto) 0.9 uL; Monocytes % (auto) 13.1 % (0.0-12.0); Neutrophils # (auto) 4.4 uL; Neutrophils % (auto) 61.5 % (37.0-80.0); Platelet Count (auto) 286 10^3/uL (140-450); Red Cell Distribution Width 14.9 % (11.6-16.0); White Blood Cell 7.1 10^3/uL (4.4-10.8)
[2017-02-17 23:41] LABS: INR 0.98 (0.9-1.15); Partial Thromboplastin Time 27.5 sec (22.64-33.71); Prothrombin Time 10.7 sec (9.37-12.3)
[2017-02-17 23:49] LABS: Albumin 4.2 g/dL (3.4-5.0); Calcium 9.2 mg/dL (8.5-10.1); Potassium 4.6 mmol/L (3.5-5.1)
[2017-02-17 23:52] LABS: BUN/Creatinine Ratio 20.8; Bilirubin, Total 0.3 mg/dL (0.2-1.0); Total Protein 7.5 g/dL (6.4-8.2)
[2017-02-18 04:43] VITALS: BP 146/94
[2017-02-18] MEDS ORDERED: cefTRIAXone SOD 1,000 MG VL IV ONE (04:45)
[2017-02-18] MEDS ORDERED: SODIUM CHLORIDE 0.9% 1,000 ML IV ONE (04:45)
== END 2017-02-18 06:25 | disposition home or self-care (01) ==
LOC: ER 22:36
DX: L03.031 Cellulitis of right toe (principal); J44.9 Chronic obstructive pulmonary disease, unspecified; E11.9 Type 2 diabetes mellitus without complications; E78.5 Hyperlipidemia, unspecified; I10 Essential (primary) hypertension; Z79.4 Long term (current) use of insulin; Z79.899 Other long term (current) drug therapy
CPT/HCPCS: 36415; 73630; 80053; 85025; 85610; 85730; 96361; 96374; 99285; J0696; J7030

== ENCOUNTER 2017-04-20 23:26 | Emergency (ER) | payer MEDICAID ==
[~2017-04-20] VITALS: Ht 177.8 cm; Wt 158.8 kg
[~2017-04-20 23:26] MED LIST changes: -LOR05T PO; +LORA-654 PO; -NAPR-604 PO; +NAPR375T3 PO
[2017-04-21 00:23] VITALS: BP 145/85
[2017-04-21 00:25] LABS: Basophils # (auto) 0.1 uL; Basophils % (auto) 1.5 % (0.0-2.0); Eosinophils # (auto) 0.6 uL; Eosinophils % (auto) 7.9 % (0.0-7.0); Hematocrit 40.9 % (41.0-53.0); Hemoglobin 13.9 g/dL (13.5-17.5); Lymphocytes # (auto) 2.1 uL; Lymphocytes % (auto) 25.6 % (10.0-50.0); Mean Corpuscular Hemoglobin 30.8 pg (28.0-32.0); Mean Corpuscular Hgb Conc. 33.9 g/dL (32.0-36.0); Mean Corpuscular Volume 90.7 fL (80.0-100.0); Mean Platelet Volume 7.7 fL (6.9-10.8); Monocytes # (auto) 0.9 uL; Monocytes % (auto) 10.9 % (0.0-12.0); Neutrophils # (auto) 4.4 uL; Neutrophils % (auto) 54.1 % (37.0-80.0); Nucleated Red Blood Cells % 0.1 %; Platelet Count (auto) 238 10^3/uL (140-450); Red Cell Distribution Width 13.4 % (11.8-14.3); White Blood Cell 8.1 10^3/uL (4.4-10.8)
[2017-04-21 00:46] LABS: Albumin 3.9 g/dL (3.4-5.0); Anion Gap 8 (5-15); Aspartate Aminotransferase 19 U/L (15-37); BUN/Creatinine Ratio 27.3; Blood Urea Nitrogen 21 mg/dL (7-18); Calcium 9.2 mg/dL (8.5-10.1); Carbon Dioxide 27 mmol/L (21-32); Chloride 108 mmol/L (98-107); GFR African American 132 mL/min; GFR Non-African American 109 mL/min; Glucose 110 mg/dL (74-106); Potassium 4.2 mmol/L (3.5-5.1); Sodium 143 mmol/L (136-145)
[2017-04-21 00:50] LABS: Alkaline Phosphatase 60 U/L (45-117); Bilirubin, Total 0.3 mg/dL (0.2-1.0); Total Protein 7.1 g/dL (6.4-8.2)
[2017-04-21 00:52] LABS: Temperature: 22.2 C (20.0-25.0)
[2017-04-21] MEDS ORDERED: HYDROcodone-ACET 10/325MG TAB PO ONE (01:45)
== END 2017-04-21 03:15 | disposition home or self-care (01) ==
LOC: EDBD 23:26 → ER 23:26
DX: R07.89 Other chest pain (principal); R09.1 Pleurisy; J44.9 Chronic obstructive pulmonary disease, unspecified; E11.9 Type 2 diabetes mellitus without complications; I10 Essential (primary) hypertension; E78.5 Hyperlipidemia, unspecified; I25.2 Old myocardial infarction; Z79.899 Other long term (current) drug therapy
CPT/HCPCS: 36415; 71010; 80053; 83880; 84443; 84484; 85025; 85379; 93005

== ENCOUNTER 2019-11-23 21:08 | Emergency (ER) | payer OTHER, MEDICAID ==
[~2019-11-23] VITALS: Ht 177.8 cm; Wt 113.4 kg
[~2019-11-23 21:08] MED LIST changes: +ACET-1156 PO; -ASPI81CH4 PO; +ASPI81CH74 PO; -CLOP75TA28 PO; +CLOP75TA41 PO; +DULO1CAP6 PO; +FURO1TAB33 PO; -GABA-498 PO; -GEMF600T3 PO; +GEMF600T7 PO; -INSLISPI SC; +LISI-648 PO; -LISI10TA6 PO; -LORA-654 PO; +MELO1TAB56 PO; +METF-370 PO; -METR500T PO; -NAPR375T3 PO; -TRAZ100T2 PO; +TRAZ100T3 PO
[2019-11-23 21:48] LABS: Basophils # (auto) 0 10 ^3/uL (0-0.2); Basophils % (auto) 0.5 % (0.0-2.0); Eosinophils # (auto) 0.2 10 ^3/uL (0-0.8); Eosinophils % (auto) 1.8 % (0.0-7.0); Hematocrit 34.6 % (41.0-53.0); Hemoglobin 11.4 g/dL (13.5-17.5); Lymphocytes # (auto) 1.6 10 ^3/uL (0.4-5.4); Lymphocytes % (auto) 15.5 % (10.0-50.0); Mean Corpuscular Hemoglobin 30.8 pg (28.0-32.0); Mean Corpuscular Volume 93.4 fL (80.0-100.0); Monocytes # (auto) 0.9 10 ^3/uL (0-1.3); Monocytes % (auto) 8.6 % (0.0-12.0); Neutrophils # (auto) 7.5 10 ^3/uL (1.6-8.6); Neutrophils % (auto) 73.6 % (37.0-80.0); Platelet Count (auto) 233 10^3/uL (140-450); Red Cell Distribution Width 14.1 % (11.8-14.3); White Blood Cell 10.2 10^3/uL (4.4-10.8)
[2019-11-23 21:53] LABS: INR 1.09 (0.9-1.15); Partial Thromboplastin Time 24.1 sec (23.64-32.05)
[2019-11-23 22:03] LABS: Alanine Aminotransferase 23 U/L (16-61); Albumin 3.3 g/dL (3.4-5.0); Anion Gap 5 (5-15); Blood Urea Nitrogen 45 mg/dL (7-18); Calcium 8.1 mg/dL (8.5-10.1); Carbon Dioxide 24 mmol/L (21-32); Chloride 108 mmol/L (98-107); Glucose 315 mg/dL (74-106); Magnesium 2.1 mg/dL (1.6-2.6); Potassium 4.7 mmol/L (3.5-5.1); Sodium 137 mmol/L (136-145)
[2019-11-23 22:08] LABS: Alkaline Phosphatase 45 U/L (45-117); Aspartate Aminotransferase 14 U/L (15-37); BUN/Creatinine Ratio 52.9; Bilirubin, Total 0.3 mg/dL (0.2-1.0); GFR African American 117 mL/min; GFR Non-African American 97 mL/min; Total Protein 6.5 g/dL (6.4-8.2)
[2019-11-23 22:42] LABS: Urine Bacteria NONE SEEN /hpf (None Seen); Urine Blood Negative /uL (Negative); Urine Mucus FEW (None Seen); Urine Specific Gravity 1.026 (1.001-1.035); Urine WBC 1 /hpf (0 - 3)
[2019-11-23] MEDS ORDERED: IOHEXOL 350 MG/ML 100ML IJ ONE (23:13)
[2019-11-24 01:00] VITALS: BP 128/68
== END 2019-11-24 01:45 | disposition home or self-care (01) ==
LOC: EDBD 21:08 → ER 21:10
DX: E86.0 Dehydration (principal); R53.1 Weakness; I12.9 Hypertensive chronic kidney disease with stage 1 through stage 4 chronic kidney disease, or unspecified chronic kidney disease; E11.22 Type 2 diabetes mellitus with diabetic chronic kidney disease; N18.9 Chronic kidney disease, unspecified; J44.9 Chronic obstructive pulmonary disease, unspecified; E78.5 Hyperlipidemia, unspecified; I25.2 Old myocardial infarction
CPT/HCPCS: 36415; 71045; 71275; 80053; 81001; 82728; 83735; 83880; 84484; 85025; 85379; 85610; 85730; 86141; 93005; 99285; Q9967

== ENCOUNTER 2020-04-18 16:48 | Emergency (ER) | payer OTHER, MEDICAID ==
[~2020-04-18] VITALS: Ht 177.8 cm; Wt 113.4 kg
[2020-04-18 20:57] VITALS: BP 105/69
== END 2020-04-18 22:18 | disposition home or self-care (01) ==
LOC: ER 16:48
DX: S53.491A Other sprain of right elbow, initial encounter (principal); F41.9 Anxiety disorder, unspecified; J44.9 Chronic obstructive pulmonary disease, unspecified; F32.9 Major depressive disorder, single episode, unspecified; E78.5 Hyperlipidemia, unspecified; I25.2 Old myocardial infarction; E11.22 Type 2 diabetes mellitus with diabetic chronic kidney disease; I12.9 Hypertensive chronic kidney disease with stage 1 through stage 4 chronic kidney disease, or unspecified chronic kidney disease; N18.9 Chronic kidney disease, unspecified; Z79.82 Long term (current) use of aspirin; Z79.4 Long term (current) use of insulin; Z79.899 Other long term (current) drug therapy; W11.XXXA Fall on and from ladder, initial encounter; Y93.89 Activity, other specified; Y92.89 Other specified places as the place of occurrence of the external cause; Y99.8 Other external cause status
CPT/HCPCS: 73080

== ENCOUNTER 2022-02-18 16:50 | Emergency (ER) | payer OTHER, MEDICAID ==
[~2022-02-18] VITALS: Ht 177.8 cm; Wt 125.0 kg
[~2022-02-18 16:50] MED LIST changes: -CLOP75TA41 PO; +CLOP75TA70 PO; +GEMF-19 PO; -GEMF600T7 PO; -LISI-648 PO; +LISI-716 PO
[2022-02-18 17:04] VITALS: BP 174/90
[2022-02-18] MEDS ORDERED: KETOROLAC TROMETH 60MG/2ML VIAL IM ONE (17:45)
[2022-02-18] MEDS ORDERED: HYDROcodone-ACET 10/325MG TAB PO ONE (17:45)
[2022-02-18 18:34] LABS: Basophils # (auto) 0.1 10 ^3/uL (0-0.2); Eosinophils # (auto) 0.2 10 ^3/uL (0-0.8); Eosinophils % (auto) 2.9 % (0.0-7.0); Hematocrit 40.7 % (41.0-53.0); Hemoglobin 13.4 g/dL (13.5-17.5); Lymphocytes # (auto) 1.7 10 ^3/uL (0.4-5.4); Lymphocytes % (auto) 21.3 % (10.0-50.0); Mean Corpuscular Hemoglobin 30.4 pg (28.0-32.0); Mean Corpuscular Hgb Conc. 32.9 g/dL (32.0-36.0); Mean Corpuscular Volume 92.4 fL (80.0-100.0); Monocytes # (auto) 0.7 10 ^3/uL (0-1.3); Neutrophils # (auto) 5.4 10 ^3/uL (1.6-8.6); Neutrophils % (auto) 65.8 % (37.0-80.0); Red Blood Cells 4.41 10^6/uL (4.5-5.90); Red Cell Distribution Width 14.4 % (11.8-14.3); White Blood Cell 8.2 10^3/uL (4.4-10.8)
[2022-02-18 18:47] LABS: Albumin 4.4 g/dL (3.4-5.0); Calcium 9.7 mg/dL (8.5-10.1); Potassium 4.5 mmol/L (3.5-5.1)
[2022-02-18 18:52] LABS: BUN/Creatinine Ratio 21.3; Bilirubin, Total 0.3 mg/dL (0.2-1.0); Total Protein 8.3 g/dL (6.4-8.2)
[2022-02-18] MEDS ORDERED: HYDR-4798 PO (19:24)
== END 2022-02-19 00:15 | disposition home or self-care (01) ==
LOC: ER 16:50
DX: R07.89 Other chest pain (principal); F12.10 Cannabis abuse, uncomplicated; E11.22 Type 2 diabetes mellitus with diabetic chronic kidney disease; I12.9 Hypertensive chronic kidney disease with stage 1 through stage 4 chronic kidney disease, or unspecified chronic kidney disease; N18.9 Chronic kidney disease, unspecified; E78.5 Hyperlipidemia, unspecified; I25.2 Old myocardial infarction
CPT/HCPCS: 36415; 71045; 80053; 83880; 84484; 85025; 93005

== ENCOUNTER 2024-03-16 06:54 | Inpatient (IN) | payer OTHER ==
[2024-03-16] VITALS (11 sets, daily range): BP systolic 107–156; BP diastolic 49–83; PULSE 18–75; RESP 12–69; TEMP 97.8–98.4; O2SAT 94–98
[~2024-03-16] VITALS: Ht 177.8 cm; Wt 131.0 kg
[~2024-03-16 06:54] MED LIST changes: -ACET-1156 PO; +ACET-1881 PO; -DULO1CAP6 PO; +DULO20CA PO; +GABA-1308 PO; -GEMF-19 PO; +GEMF-66 PO; +GLIP5TAB21 PO; -INSU100I2 SC; +INSU100I28 IJ; +ISOS1TAB28 PO; -LISI-716 PO; +LISI10TA34 PO; +LORA-1121 PO; +MELO15TA29 PO; -MELO1TAB56 PO; +PIO30T PO; +RANO500T3 PO; +SEMA2INJ3 SC; -TRAZ100T3 PO; +TRAZ1TAB12 PO
[2024-03-16] MEDS: IODIXANOL 320MG/ML 100ML BTL IV ONE ×3 (07:34→10:57)
[2024-03-16] MEDS: LIDOCAINE 2%HCL (LOCAL ANESTH.) INJ 20ML MDV ONE (09:52)
[2024-03-16] MEDS: HEPARIN SODIUM (PORCINE) 5000 UNITS/ML 1ML VIAL ONE (09:57)
[2024-03-16] MEDS: VERAPAMIL 2.5MG/ML INJ 2ML VIAL IV ONE (09:57)
[2024-03-16] MEDS: MIDAZOLAM HCL 2MG/2ML 2ml VIAL (1mg/ml) ONE (09:58)
[2024-03-16] MEDS: fentaNYL CITRATE 100 MCG/2 ML VL ONE (09:58)
[2024-03-16] MEDS: ANGIOMAX 250 MG VIAL IV ONE (10:41)
[2024-03-16] MEDS: ASPirin 81 mg TAB ONE (10:59)
[2024-03-16] MEDS: CLOPIDOGREL BISULFATE 75 MG TAB ONE (10:59)
[2024-03-16] MEDS ORDERED: MORPHINE SULFATE INJ 2 MG/ml SYRG IV PRN (11:30)
[2024-03-16] MEDS ORDERED: NITROGLYCERIN 0.4 MG SL TAB SL PRN (11:30)
[2024-03-16] MEDS ORDERED: DEXTROSE (50%) 50ML SYRG IV PRN (13:00)
[2024-03-16] MEDS: ACCU-CHEK COMFORT CURVE STRIP VI SCH (16:53)
[2024-03-16] MEDS: InsuLIN REG 1unit/0.01ml Soln (100units/ml) SC SCH ×2 (17:04→21:59)
[2024-03-16] MEDS: ATORVASTATIN 20 MG TAB PO SCH (21:56)
[2024-03-16] MEDS: GABAPENTIN 400 MG CAP PO SCH (21:57)
[2024-03-16] MEDS: LISINOPRIL 20 MG TAB PO SCH (21:57)
[2024-03-17 01:00] VITALS: BP 145/84; PULSE 69; RESP 18; TEMP 97.9; O2SAT 96
[2024-03-17 05:00] VITALS: BP 140/70; PULSE 70; RESP 17; TEMP 97.7; O2SAT 95
[2024-03-17 08:00] VITALS: PULSE 18; PULSE 79; RESP 69; O2SAT 98
[2024-03-17] MEDS: ASPirin 81 mg TAB PO SCH (09:20)
[2024-03-17] MEDS: CLOPIDOGREL BISULFATE 75 MG TAB PO SCH (09:20)
[2024-03-17] MEDS: CARVEDILOL 3.125 MG TAB PO SCH (09:21)
[2024-03-17] MEDS: FUROSEMIDE 20 MG TAB PO SCH (09:21)
[2024-03-17] MEDS: DULOXETINE 20 MG PO SCH (10:00)
[2024-03-17 13:16] VITALS: BP 148/79; PULSE 74; RESP 19; TEMP 97.8; O2SAT 99
[2024-03-17 14:16] VITALS: BP 148/79; PULSE 76; RESP 18; TEMP 36.6; O2SAT 74
== END 2024-03-17 16:30 | disposition home or self-care (01) | DRG 324 ==
LOC: CATH 06:54 → TELE 11:32 → TELE-WESTW 14:08
PROVIDERS: ADMIT Internal Medicine; ATTEND Internal Medicine
PROC: B211YZZ Fluoroscopy of Multiple Coronary Arteries using Other Contrast (ICD-10-PCS; principal; 2024-03-16)
PROC: 027034Z Dilation of Coronary Artery, One Artery with Drug-eluting Intraluminal Device, Percutaneous Approach (ICD-10-PCS; 2024-03-16)
PROC: 02F03ZZ Fragmentation in Coronary Artery, One Artery, Percutaneous Approach (ICD-10-PCS; 2024-03-16)
PROC: 4A023N7 Measurement of Cardiac Sampling and Pressure, Left Heart, Percutaneous Approach (ICD-10-PCS; 2024-03-16)
PROC: 3E03317 Introduction of Other Thrombolytic into Peripheral Vein, Percutaneous Approach (ICD-10-PCS; 2024-03-16)
DX: I25.10 Atherosclerotic heart disease of native coronary artery without angina pectoris (principal); I25.82 Chronic total occlusion of coronary artery; I10 Essential (primary) hypertension; J44.9 Chronic obstructive pulmonary disease, unspecified; E78.00 Pure hypercholesterolemia, unspecified; E11.40 Type 2 diabetes mellitus with diabetic neuropathy, unspecified; Z79.84 Long term (current) use of oral hypoglycemic drugs
CPT/HCPCS: 71045; 82962; 92943; 92972; 93458; 99152; C1874; G0378; J1815; J2250; Q9967